=== PATIENT | male | born 1985 | race Caucasian/White ===

== ENCOUNTER 2024-12-12 18:00 | Emergency (ER) | payer MEDICARE, MEDICAID, SELFPAY ==
--- NOTE | ~2024-12-12 | XR_ITS ---
CLINICAL HISTORY: pain Four views of the right knee. COMPARISON: None FINDINGS: No suprapatellar joint effusion. Joint spaces are maintained. Visualized portions of the distal femur, patella, and proximal tibia and fibula appear intact. IMPRESSION: 1. No radiographic evidence of acute injury to the right knee. This document has been electronically signed by: Austin Martinez MD on 12/12/2024 18:50:55
--- NOTE | ~2024-12-12 | US_ITS ---
CLINICAL HISTORY: pain, swelling Venous duplex ultrasound right lower extremity COMPARISON: None FINDINGS: The visualized deep veins are fully compressible with normal Doppler color flow and spectral tracings. No popliteal cyst. IMPRESSION: 1. Negative for right lower extremity deep vein thrombosis. This document has been electronically signed by: Austin Martinez MD on 12/12/2024 19:32:00
[2024-12-12 18:03] VITALS: BP 127/83; PULSE 107; RESP 16; TEMP 36.8; O2SAT 97; BMI 30.2
--- NOTE | 2024-12-12 18:11 | ED_ITS ---
HPI - General Adult General Chief complaint: General Medical Stated complaint: Right leg pain Time Seen by Provider: 12/12/24 20:22 Source: patient Mode of arrival: ambulatory Limitations: no limitations History of Present Illness ED Provider: Dr. Jv Kellogg HPI narrative: 39-year-old male with self report of agoraphobia, who presents with a atraumatic right knee pain times 5 days. The patient was not recount any injury. He states that he was had a sharp pain in his right thigh that goes to his right knee. He states that the pain in his thigh is resolved but now he was having pain in his knee which is worse with movement and walking. He also states that at night the pain is worsening causes spasm of the muscles of his knee. He denied fever, chills, rhinorrhea, sore throat, cough, chest pain, shortness of breath, nausea, vomiting or diarrhea. Related Data Previous Rx's ?Medication ?Instructions ?Recorded acetaminophen 500 mg tablet 1,000 mg (2 x 500 mg) PO Q6H PRN 12/12/24 (Tylenol Extra Strength) fever or pain #20 tabs cyclobenzaprine 10 mg tablet 10 mg PO TID PRN pain, muscle 12/12/24 spasm #15 tabs ibuprofen 400 mg tablet 400 mg PO TID PRN fever or pain 12/12/24 #30 tabs Allergies Allergy/AdvReac Type Severity Reaction Status Date / Time No Known Allergies Allergy Verified 12/12/24 18:05 Review of Systems 2 Review of Systems: Yes all other systems are reviewed and are negative [facility] Past Medical History [facility] Narrative: Social history: He denies tobacco, alcohol and drug use Social History Social History Smoked in Last 30 Days: No Use of substances other than those prescribed or required for medical reasons: No Advance Directives: No Advance Directives Information Provided: No Physical Exam ED Vital Signs: Vital Signs - 24 hr 12/12/24 18:03 12/12/24 21:01 12/12/24 21:02 Temperature 98.3 F 98.1 F 98.1 F Pulse Rate 107 H 85 85 Respiratory Rate 16 19 19 Blood Pressure 127/83 122/79 122/79 Pulse Oximetry 97 98 98 Oxygen Delivery Method Room Air Room Air Room Air BMI result Body Mass Index 30.2 Vital signs were normal Exam: General: Awake, alert in no distress Extremities: Left lower extremity: Normal exam Right lower extremity: There is no increased warmth or erythema to the skin. There is no joint effusion. Patient was full range of motion of his knee with no limitations. Patient's thigh and calf are nontender. Both extremities appear to be equal incise. Course Course Course Narrative: This is a rapid medical exam performed by Danielle Be PA-C. Patient is a 39-year-old male with self report of agoraphobia, who presents with a atraumatic right knee pain times 5 days. Patient states he woke morning with right thigh pain and numbness, now the pain is focal in the right knee. Pain worse with walking. Patient states the right leg feels heavy. Denies focal swelling, redness of the joint or fever. On exam patient has full flexion and extension of the right knee, there was no deformity, it was not hot or red. He does walk with a limp. We will be obtaining an x-ray, screening labs with a inflammatory markers and an ultrasound to rule out DVT. The patient was stable and can return to the waiting room pending his full medical assessment. Medications Administered Discontinued Medications Generic Name Dose Route Start Last Admin Trade Name Freq PRN Reason Stop Dose Admin Cyclobenzaprine HCl 10 mg 12/12/24 20:42 12/12/24 20:59 Cyclobenzaprine Hcl 10 Mg Tablet PO 12/12/24 20:43 10 mg ONCE ONE Administration Ibuprofen 400 mg 12/12/24 20:42 12/12/24 20:59 Ibuprofen 400 Mg Tablet PO 12/12/24 20:43 400 mg ONCE STA Administration Medical Decision Making Medical Decision Making MDM Narrative: 39-year-old male with self report of agoraphobia, who presents with a atraumatic right knee pain times 5 days. The patient was not recount any injury. Patient had no concerning systemic symptoms. Vital signs were normal. Examination revealed no significant findings. Differential diagnosis: ?Includes but is not limited to left knee sprain, left knee strain, inflammatory arthritis, septic arthritis, DVT Course: My interpretation patient's laboratory evaluation as follows: CBC was normal. CMP was normal. CRP and ESR were not elevated. Right knee x-ray revealed no acute findings. Right lower extremity duplex ultrasound revealed no DVT. At this time I believe the patient may have sprained his knee which is causing pain and spasm of the knee. I did discuss this with him. The patient was prescribed ibuprofen 400 mg 3 times a day as needed for pain, Tylenol 1000 mg 3 times a day as needed for pain and Flexeril 10 mg 3 times a day as needed for spasm. The patient was given a dose of ibuprofen and Flexeril in the emergency department prior to being discharged. He was given printed and verbal instructions discharged home. Admission/Observation Consideration of admission/observation: Escalation of care including admission/observation considered (Yes) Lab Data [facility] Lab Attestation statement: I reviewed the patient's lab results. 12/12/24 19:01 12/12/24 19:01 Labs: Lab Results 12/12/24 Range/Units 19:01 WBC 4.9 (4.8-10.8) X10*3/uL RBC 5.50 (4.60-5.80) X10*6/uL Hgb 17.0 (14.0-18.0) g/dl Hct 48.1 (42.0-52.0) % MCV 87.5 (80.0-98.0) fL MCH 30.9 (27.0-33.0) pg MCHC 35.3 (31.0-36.0) g/dl RDW 11.9 (11.0-16.0) % Plt Count 235 (160-400) X10*3/uL MPV 10.1 (9.4-12.4) fL Immature Gran % (Auto) 0.2 (0.0-0.4) % Neut % (Auto) 53.3 (45-73) % Lymph % (Auto) 28.2 (20-40) % Edwards % (Auto) 7.6 (2-11) % Eos % (Auto) 9.9 H (0-4) % Baso % (Auto) 0.8 (0-2) % Lymph # (Auto) 1.4 (1.2-4.9) X10*3/uL Edwards # (Auto) 0.4 (0.1-1.2) X10*3/uL Eos # (Auto) 0.5 H (0.0-0.4) X10*3/uL Baso # (Auto) 0.0 (0.0-0.2) X10*3/uL Abs Immat Gran (auto) 0.01 (0.00-0.03) X10*3/uL Absolute Neuts (auto) 2.6 (2.0-8.3) x10*3/uL Absolute Nucleated RBC 0.000 (0.0-0.012) X10*3/uL Nucleated RBC % (auto) 0.0 (0.0-0.2) /100WBC ESR 8 (0-15) MM/HR Sodium 140 (135-145) mmol/L Potassium 4.2 (3.3-5.1) mmol/L Chloride 106 (96-108) mmol/L Carbon Dioxide 30 H (22-29) mmol/L Anion Gap 8 L (12-20) BUN 12 (9-16) mg/dL Creatinine 0.92 (0.5-1.4) mg/dL Estim Creat Clear Calc 109.0 Estimated GFR > 60 Random Glucose 110 (60-115) mg/dL Calcium 9.7 (8.4-10.2) mg/dL Magnesium 1.8 (1.6-2.6) mg/dL Total Bilirubin 0.3 (0.0-1.0) mg/dL AST 24 (5-37) U/L ALT 28 (0-40) U/L Alkaline Phosphatase 85 (39-117) U/L C-Reactive Protein 0.34 (< or = 0.50) mg/dL Total Protein 7.8 (6.5-8.0) g/dL Albumin 4.1 (3.5-5.0) g/dL Independent Interpretation I performed an independent interpretation of an: Plain X-Ray Interpretation: My independent interpretation patient's right knee x-ray is as follows: No acute disease Radiology Impression Discussion of test interpretation with radiology: I have reviewed the radiologist's reading. Radiologist Impression: Venous duplex ultrasound right lower extremity COMPARISON: None FINDINGS: The visualized deep veins are fully compressible with normal Doppler color flow and spectral tracings. No popliteal cyst. IMPRESSION: 1. Negative for right lower extremity deep vein thrombosis. This document has been electronically signed by: Austin Martinez MD on 12/12/2024 19:32:00 Four views of the right knee. COMPARISON: None FINDINGS: No suprapatellar joint effusion. Joint spaces are maintained. Visualized portions of the distal femur, patella, and proximal tibia and fibula appear intact. IMPRESSION: 1. No radiographic evidence of acute injury to the right knee. This document has been electronically signed by: Austin Martinez MD on 12/12/2024 18:50:55 Independent Historian Clinical information obtained from an independent historian. History obtained from or confirmed by: Other (Mother) Prescription Management I considered prescription management with: Pain Medication (Ibuprofen and Tylenol) and Other (Anti muscles spasmodic: Flexeril) Discharge Plan Discharge Clinical Impression: Acute pain of right knee, Muscle spasm Patient Disposition: Home, Self-Care Instructions: Knee Pain (ED) Additional Instructions: Your white blood cell count was normal. Your to inflammatory markers (ESR and CRP) were normal. The x-ray of your right knee did not reveal any arthritis, broken bones or other abnormality of your knee. The duplex ultrasound of your right knee was normal and there was no evidence for blood clot in your leg which is reassuring. At this time I suspect that you may have injured her sprain your knee and this is causing your pain. Take ibuprofen 400 mg pills, 1 pills every 6 hours as needed for pain or fever. Take Tylenol (acetaminophen) 500 mg pills, 2 pills every 6 hours as needed for pain or fever. Take Flexeril (cyclobenzaprine) 10 mg pills, 1 pill every 6-8 hours as needed for pain or spasm. ?This medication will make you sleepy. ?Do not drive or work while taking this medication. Follow-up with your doctor in 2 days. Please return to the emergency department if your symptoms get worse or if you develop any symptoms that are concerning to you. Prescriptions: New cyclobenzaprine 10 mg tablet 10 mg PO TID PRN (Reason: pain, muscle spasm) Qty: 15 0RF acetaminophen [Tylenol Extra Strength] 500 mg tablet 1,000 mg PO Q6H PRN (Reason: fever or pain) Qty: 20 0RF ibuprofen 400 mg tablet 400 mg PO TID PRN (Reason: fever or pain) Qty: 30 0RF Interventions: ED Discharge Assessment Last Done: 12/12/24 21:02 Discharge Date/Time: 12/12/24 21:02 Print Language: Albanian
[2024-12-12 19:06] LABS: MANUAL DIFF FLAG NO
[2024-12-12 19:07] LABS: Basophils Percent Auto 0.8 % (0-2); Eosinophils Absolute Auto 0.5 X10*3/uL (0.0-0.4); Eosinophils Percent Auto 9.9 % (0-4); Hematocrit 48.1 % (42.0-52.0); Imm Gran Abs Auto 0.01 X10*3/uL (0.00-0.03); Imm Gran Pct Auto 0.2 % (0.0-0.4); Lymphocytes Absolute Auto 1.4 X10*3/uL (1.2-4.9); Lymphocytes Percent Auto 28.2 % (20-40); Mean Corpuscular HGB Conc 35.3 g/dl (31.0-36.0); Mean Corpuscular Hemoglobin 30.9 pg (27.0-33.0); Mean Corpuscular Volume 87.5 fL (80.0-98.0); Mean Platelet Volume 10.1 fL (9.4-12.4); Monocytes Absolute Auto 0.4 X10*3/uL (0.1-1.2); Monocytes Percent Auto 7.6 % (2-11); Neutrophils Absolute Auto 2.6 x10*3/uL (2.0-8.3); Neutrophils Percent Auto 53.3 % (45-73); Platelet Count 235 X10*3/uL (160-400); Red Cell Distribution Width 11.9 % (11.0-16.0); White Blood Count 4.9 X10*3/uL (4.8-10.8)
[2024-12-12 19:21] LABS: Alanine Aminotransferase 28 U/L (0-40); Albumin Level 4.1 g/dL (3.5-5.0); Alkaline Phosphatase 85 U/L (39-117); Anion Gap 8 (12-20); Aspartate Amino Transferase 24 U/L (5-37); Bilirubin Total 0.3 mg/dL (0.0-1.0); Blood Urea Nitrogen 12 mg/dL (9-16); C Reactive Protein 0.34 mg/dL (< or = 0.50); Calcium 9.7 mg/dL (8.4-10.2); Carbon Dioxide 30 mmol/L (22-29); Chloride 106 mmol/L (96-108); Estimated Glomerular Filt Rate > 60; Glucose Random 110 mg/dL (60-115); Magnesium 1.8 mg/dL (1.6-2.6); Potassium 4.2 mmol/L (3.3-5.1); Sodium 140 mmol/L (135-145); Total Protein 7.8 g/dL (6.5-8.0)
[2024-12-12 19:59] LABS: Erythrocyte Sedimentation Rate 8 MM/HR (0-15)
[2024-12-12] MEDS: Cyclobenzaprine HCl 10 MG TABLET PO (20:59)
[2024-12-12] MEDS: Ibuprofen 400 MG TABLET PO (20:59)
[2024-12-12 21:01] VITALS: BP 122/79; PULSE 85; RESP 19; TEMP 36.7; O2SAT 98
[2024-12-12 21:02] VITALS: BP 122/79; PULSE 85; RESP 19; TEMP 36.7; O2SAT 98
== END 2024-12-12 21:02 | disposition home or self-care (01) ==
PROVIDERS: Physician Assistant Medical; Emergency Provider Emergency Medicine Emergency Medical Services; PCP Internal Medicine
DX: M79.604 Pain in right leg (principal); M25.561 Pain in right knee; M62.838 Other muscle spasm
CPT/HCPCS: 36415; 73562; 80053; 83735; 85025; 85652; 86140; 93971; 99284

== ENCOUNTER → 2024-12-12 18:09 | Outpatient (BNV) | payer MEDICAID, SELFPAY | PROVIDERS: PCP Internal Medicine; Visit Provider Radiology Diagnostic Radiology | DX: M79.661 Pain in right lower leg (principal); R22.41 Localized swelling, mass and lump, right lower limb; M25.561 Pain in right knee | CPT/HCPCS: 73562; 93971 ==